=== PATIENT | female | born 1965 | race Caucasian/White ===

== ENCOUNTER → 2016-07-14 | Outpatient (CLI) | payer BC ==
[~2016-07-14] MED LIST: ESTR1TAB77 PO; FLUT9.9S NS
--- NOTE | 2016-07-14 13:16 | DI ---
Indication: ITS.REASON: M25.571 PAIN IN RT ANKLE AND JOINTS OF RT FOOT PROCEDURE: ANKLE RIGHT 3 VIEW: Encounter: Initial Comparison: None Findings: There is no acute fracture, dislocation or malalignment identified. abandoned 1.5 cm screw fragment seen in the medial distal tibia. Evidence of old fibular fracture deformity. Impression: No acute osseous abnormality. .
== END ==
LOC: IMA 12:09
PROVIDERS: ATTEND Family Medicine
DX: M25.571 Pain in right ankle and joints of right foot (principal)